=== PATIENT | female | born 1995 | race Caucasian/White ===

== ENCOUNTER 2017-01-21 13:41 | Emergency (ER) | payer OTHER ==
[2017-01-21 15:10] LABS: HEMOGLOBIN 14.2 gm/dl (12.3-15.3); RED BLOOD COUNT 4.82 M/UL (4.00-5.10); WHITE BLOOD COUNT 9.1 K/UL (4.5-11.0)
[2017-01-21 15:33] LABS: BUN/CREATININE RATIO 18 (0-10)
== END 2017-01-21 17:17 | disposition home or self-care (01) ==
LOC: ER1 13:41
PROVIDERS: Physician Assistant
DX: N93.8 Other specified abnormal uterine and vaginal bleeding (principal)
CPT/HCPCS: 36415; 80053; 81001; 84702; 85025; 86900; 86901; 99284